=== PATIENT | female | born 1990 | race Caucasian/White ===

== ENCOUNTER 2024-05-19 19:13 | Observation (INO) | payer OTHER ==
--- NOTE | 2024-05-19 19:34 | ERPHSYRPT ---
- History of Present Illness Time Seen by Provider: 05/19/24 19:34 Source: patient, EMS Exam Limitations: no limitations Physician History: This is a 34-year-old white female patient that arrives by paramedics secondary to worsening symptoms of cough and shortness of breath. Patient was fine on 05/17/2024. However, on the morning of 05/18/2024, she began having coughing symptoms, sore throat body aches. She was seen at her primary care provider's office on 05/18/2024 and viral swabs and strep test were all performed and were negative. No other studies were performed. She was diagnosed with viral illness and sent home. This evening, prior to arrival she began having worsening cough and worsening shortness of breath. She was somewhat confused and was found to be hypoxic with a room air oxygen saturation of 83%. Paramedics arrived and provided her with oxygen supplementation as well as provided her with a DuoNeb treatment. Patient has a history of migraine headaches as well as asthma. She denies chest pain. She denies abdominal pain. She has no nausea vomiting or diarrhea symptoms. Per paramedics additional history and information, the patient was wheezing prior to providing her with a DuoNeb treatment. Timing/Duration: yesterday, worse Cough Quality/Degree: mild, dry cough Possible Cause: no prior episodes Modifying Factors: Improves With: coughing, other (DuoNeb nebulizer treatment helped with her cough and breathing) Associated Symptoms: cough, headache, shortness of breath, sore throat, No chest pain/soreness Allergies/Adverse Reactions: No Known Drug Allergies Allergy (Verified 05/19/24 19:40) Home Medications: Albuterol Sulfate [Albuterol Sulfate Hfa] 2 inh IH Q4H PRN PRN 05/19/24 [History] Dextroamphetamine/Amphetamine [Dextroamp-Amphetamin 20 mg Tab] 40 mg PO DAILY 05/19/24 [History] Hx Tetanus, Diphtheria Vaccination/Date Given: No Hx Influenza Vaccination/Date Given: No Hx Pneumococcal Vaccination/Date Given: No Travel Risk - International Travel Have you traveled outside of the country in past 3 weeks: No - Emerging Infectious Disease Are you exhibiting symptoms associated with any current EIDs: Yes - Review of Systems Constitutional: No Symptoms Eyes: No Symptoms Ears, Nose, & Throat: Throat Pain Respiratory: Cough, Dyspnea, Wheezing Cardiac: No Symptoms Abdominal/Gastrointestinal: No Symptoms Genitourinary Symptoms: No Symptoms Musculoskeletal: No Symptoms Skin: No Symptoms Neurological: Headache Psychological: No Symptoms Endocrine: No Symptoms Hematologic/Lymphatic: No Symptoms Immunological/Allergic: No Symptoms All Other Systems: Reviewed and Negative - Past Medical History Pertinent Past Medical History: Yes Neurological History: Migraines ENT History: No Pertinent History Cardiac History: No Pertinent History Respiratory History: Asthma Musculoskeletal History: No Pertinent History GI Medical History: No Pertinent History History: No Pertinent History Psycho-Social History: No Pertinent History Female Reproductive Disorders: No Pertinent History Other Medical History: HX OF MISCARRIAGE - Past Surgical History Past Surgical History: Yes Neuro Surgical History: No Pertinent History Cardiac: No Pertinent History Respiratory: No Pertinent History Gastrointestinal: No Pertinent History Genitourinary: No Pertinent History Musculoskeletal: No Pertinent History Female Surgical History: Section - Female History Hx Last Menstrual Period: 09/14/12 - Social History Smoking Status: Never smoker Exposure to second hand smoke: No Drug Use: none Patient Lives Alone: No - Nursing Vital Signs Nursing Vital Signs: Initial Vital Signs Temperature 97.8 F 05/19/24 19:14 Pulse Rate 134 H 05/19/24 19:14 Respiratory Rate 20 05/19/24 19:14 Blood Pressure 118/77 05/19/24 19:14 O2 Sat by Pulse Oximetry 95 05/19/24 19:14 Pain Scale Pain Intensity 8 - Physical Exam General Appearance: no apparent distress, alert, anxiety Eye Exam: PERRL/EOMI, eyes nml inspection Ears, Nose, Throat Exam: normal ENT inspection, moist mucous membranes Neck Exam: normal inspection, non-tender, supple, full range of motion Respiratory Exam: normal breath sounds, lungs clear, airway intact, No chest tenderness, No respiratory distress Cardiovascular Exam: tachycardia Gastrointestinal/Abdomen Exam: soft, normal bowel sounds, No tenderness Pelvic Exam: not done Rectal Exam: not done Back Exam: normal inspection, normal range of motion, No CVA tenderness, No vertebral tenderness Extremity Exam: normal inspection, normal range of motion, pelvis stable Neurologic Exam: alert, oriented x 3, cooperative, home care specialist II-XII nml as tested, sensation nml Skin Exam: normal color, warm, dry Lymphatic Exam: No adenopathy SpO2 Interpretation: normal O2 Delivery: Room Air - Course Nursing assessment & vital signs reviewed: Yes Ordered Tests: Active Orders 24 hr Category Date Time Status Cephalometric Technician STAT Care 05/19/24 19:38 Active IV Insertion STAT Care 05/19/24 19:35 Active Pulse Oximetry (ED) STAT Care 05/19/24 19:35 Active CHEST 1 VIEW (PORTABLE) Stat Exams 05/19/24 20:51 Taken BLOOD CULTURE Stat Lab 05/19/24 19:55 Received CBC W DIFF Stat Lab 05/19/24 19:42 Completed CMP Stat Lab 05/19/24 19:42 Completed CULTURE,URINE Stat Lab 05/19/24 21:30 Received D-DIMER QUANTITATIVE Stat Lab 05/19/24 19:55 Completed MONO SCREEN Stat Lab 05/19/24 19:42 Completed UA W/RFX UR CULTURE Stat Lab 05/19/24 21:30 Completed Transfer Order Routine Transfer 05/19/24 Ordered Medication Summary Discontinued Medications Generic Name Dose Route Start Last Admin Trade Name Freq PRN Reason Stop Dose Admin Hydrocodone Bitart/Acetaminophen 15 ml 05/19/24 19:39 05/19/24 19:50 Hydrocodone/Acetaminophen 5 Ml Udcup PO 05/19/24 19:40 15 ml STAT STA Administration Hydrocodone Bitart/Acetaminophen Confirm 05/19/24 19:44 Hydrocodone/Acetaminophen 5 Ml Udcup Administered 05/19/24 19:45 Dose 15 ml .ROUTE .STK-MED ONE Methylprednisolone Sodium 0 mg 05/19/24 19:39 05/19/24 19:52 Succinate 125 mg/ Sterile IV 05/19/24 19:40 125 mg Water 2 ml STAT ONE Administration Ceftriaxone Sodium 1 gm in 100 mls @ 200 mls/hr 05/19/24 21:26 05/19/24 21:42 Rocephin 1 Gm / 100 Ml Nacl IV 05/19/24 21:55 200 ml/hr STAT ONE 200 mls/hr Administration Sodium Chloride 1,000 mls @ 999 mls/hr 05/19/24 21:28 05/19/24 21:42 Sodium Chloride 0.9% 1000 Ml IV 05/19/24 22:28 999 mls/hr .Q1H1M STA Administration Sodium Chloride Confirm 05/19/24 21:37 Sodium Chloride 0.9% 1000 Ml Administered 05/19/24 21:38 Dose 1,000 mls @ ud .ROUTE .STK-MED ONE Ceftriaxone Sodium Confirm 05/19/24 21:38 Rocephin 1 Gm / 100 Ml Nacl Administered 05/19/24 21:39 Dose 1 gm in 100 mls @ ud IV .STK-MED ONE Methylprednisolone Sodium Succinate Confirm 05/19/24 19:45 Methylprednis Sod Succ 125 Mg/2 Ml Vial Administered 05/19/24 19:46 Dose 125 mg .ROUTE .STK-MED ONE Potassium Chloride 20 meq 05/19/24 21:09 05/19/24 21:13 Potassium Chloride Tab 10 Meq Tab PO 05/19/24 21:10 20 meq STAT ONE Administration Potassium Chloride Confirm 05/19/24 21:11 Potassium Chloride Tab 10 Meq Tab Administered 05/19/24 21:12 Dose 20 meq .ROUTE .STK-MED ONE Sterile Water Confirm 05/19/24 19:44 Water For Injection,Sterile 10 Ml Vial Administered 05/19/24 19:45 Dose 10 ml IJ .STK-MED ONE Lab/Rad Data: Laboratory Result Diagrams 05/19/24 19:42 05/19/24 19:42 Laboratory Results 05/19/24 05/19/24 05/19/24 Range/Units 22:07 21:30 19:55 WBC (3.98-10.04) x10^3/uL RBC (3.93-5.22) x10^6/uL Hgb (11.2-15.7) g/dL Hct (34.1-44.9) % MCV (79.4-94.8) fL MCH (25.6-32.2) pg MCHC (32.2-35.5) g/dL RDW (11.7-14.4) % Plt Count (182-369) x10^3/uL MPV (9.4-12.3) fL Gran % (34.0-71.1) % Immature Gran % (Auto) (0.001-0.429) % Nucleat RBC Rel Count (0.00-0.2) % Eos # (Auto) (0.04-0.36) x10^3/uL Immature Gran # (Auto) (0.001-0.031) x10^3u/L Absolute Lymphs (auto) (1.18-3.74) x10^3/uL Absolute Monos (auto) (0.24-0.86) x10^3/uL Absolute Nucleated RBC (0.00-0.012) x10^3u/L Lymphocytes % (19.3-51.7) % Monocytes % (4.7-12.5) % Eosinophils % (0.7-5.8) % Basophils % (0.1-1.2) % Absolute Granulocytes (1.56-6.13) x10^3/uL Basophils # (0.01-0.08) x10^3/uL D-Dimer 0.39 (0.0-0.50) mg/L Sodium (135-145) mmol/L Potassium (3.5-5.1) mmol/L Chloride (98-107) mmol/L Carbon Dioxide (22-30) mmol/L Anion Gap (5-15) MEQ/L BUN (7-17) mg/dL Creatinine (0.52-1.04) mg/dL Estimated GFR ML/MIN Glucose (74-106) mg/dL Calcium (8.4-10.2) mg/dL Total Bilirubin (0.2-1.3) mg/dL AST (14-36) U/L ALT (0-35) U/L Alkaline Phosphatase (38-126) U/L Serum Total Protein (6.3-8.2) g/dL Albumin (3.5-5.0) g/dL Urine Color Dark Yellow A (Yellow) Urine Appearance Cloudy A (Clear) Urine pH 5.0 (4.6-8.0) Ur Specific [place] >=1.030 A (1.005-1.030) Urine Protein 30 (Negative) Urine Glucose (UA) Negative (Negative) mg/dL Urine Ketones Trace A (Negative) Urine Blood Negative (Negative) Urine Nitrite Negative (Negative) Urine Bilirubin Negative (Negative) Urine Urobilinogen 1.0 A (0.2) mg/dL Ur Leukocyte Esterase Moderate A (Negative) U Hyaline Cast (Auto) 6-10 A (0-2) /LPF Urine Microscopic RBC 0-2 (0-5) /HPF Urine Microscopic WBC >100 A (0-5) /HPF Ur Epithelial Cells Moderate A (None Seen) /HPF Urine Bacteria Many A (None Seen) /HPF Urine Culture Reflexed YES (NO) Monoscreen (NEGATIVE) Influenza Type A Ag NEGATIVE (NEGATIVE) Influenza Type B Ag NEGATIVE (NEGATIVE) RSV (PCR) NEGATIVE (NEGATIVE) SARS-CoV-2 (PCR) NEGATIVE (NEGATIVE) 05/19/24 05/19/24 05/19/24 Range/Units 19:42 19:42 19:42 WBC 11.0 H (3.98-10.04) x10^3/uL RBC 4.71 (3.93-5.22) x10^6/uL Hgb 14.7 (11.2-15.7) g/dL Hct 44.2 (34.1-44.9) % MCV 93.8 (79.4-94.8) fL MCH 31.2 (25.6-32.2) pg MCHC 33.3 (32.2-35.5) g/dL RDW 12.2 (11.7-14.4) % Plt Count 388 H (182-369) x10^3/uL MPV 9.5 (9.4-12.3) fL Gran % 78.2 H (34.0-71.1) % Immature Gran % (Auto) 0.3 (0.001-0.429) % Nucleat RBC Rel Count 0.0 (0.00-0.2) % Eos # (Auto) 0.64 H (0.04-0.36) x10^3/uL Immature Gran # (Auto) 0.03 (0.001-0.031) x10^3u/L Absolute Lymphs (auto) 1.07 L (1.18-3.74) x10^3/uL Absolute Monos (auto) 0.56 (0.24-0.86) x10^3/uL Absolute Nucleated RBC 0.00 (0.00-0.012) x10^3u/L Lymphocytes % 9.8 L (19.3-51.7) % Monocytes % 5.1 (4.7-12.5) % Eosinophils % 5.8 (0.7-5.8) % Basophils % 0.8 (0.1-1.2) % Absolute Granulocytes 8.57 H (1.56-6.13) x10^3/uL Basophils # 0.09 H (0.01-0.08) x10^3/uL D-Dimer (0.0-0.50) mg/L Sodium 136 (135-145) mmol/L Potassium 3.3 L (3.5-5.1) mmol/L Chloride 104 (98-107) mmol/L Carbon Dioxide 20 L (22-30) mmol/L Anion Gap 14.3 (5-15) MEQ/L BUN 11 (7-17) mg/dL Creatinine 0.73 (0.52-1.04) mg/dL Estimated GFR 109.9 ML/MIN Glucose 128 H (74-106) mg/dL Calcium 9.1 (8.4-10.2) mg/dL Total Bilirubin 0.40 (0.2-1.3) mg/dL AST 35 (14-36) U/L ALT 38 H (0-35) U/L Alkaline Phosphatase 82 (38-126) U/L Serum Total Protein 7.2 (6.3-8.2) g/dL Albumin 4.3 (3.5-5.0) g/dL Urine Color (Yellow) Urine Appearance (Clear) Urine pH (4.6-8.0) Ur Specific [place] (1.005-1.030) Urine Protein (Negative) Urine Glucose (UA) (Negative) mg/dL Urine Ketones (Negative) Urine Blood (Negative) Urine Nitrite (Negative) Urine Bilirubin (Negative) Urine Urobilinogen (0.2) mg/dL Ur Leukocyte Esterase (Negative) U Hyaline Cast (Auto) (0-2) /LPF Urine Microscopic RBC (0-5) /HPF Urine Microscopic WBC (0-5) /HPF Ur Epithelial Cells (None Seen) /HPF Urine Bacteria (None Seen) /HPF Urine Culture Reflexed (NO) Monoscreen POSITIVE A (NEGATIVE) Influenza Type A Ag (NEGATIVE) Influenza Type B Ag (NEGATIVE) RSV (PCR) (NEGATIVE) SARS-CoV-2 (PCR) (NEGATIVE) - Progress Progress: improved, re-examined Air Movement: good Progress Note: 05/19/24 20:12 My medical decision making and the assignment of moderate complexity to this patient's medical issue today is based on review of the patient's past medical history, review the patient's medication list, history present illness and physical findings on examination. The workup in this patient includes provide the patient with intravenous Solu-Medrol, oral hydrocodone elixir, CBC, CMP, D- dimer level, urinalysis. I will not repeat the viral swabs nor the group A strep test as they were negative less than 24 hours ago. I will also test for mononucleosis. Depending on the results of the D-dimer, we will either perform a CT scan of the chest with contrast or chest x-ray. Differential diagnosis includes but is not limited to pneumonia, viral illness, upper respiratory infection 05/19/24 21:38 I interpreted the patient's laboratory data results. Based on the laboratory data results, the patient has a leukocytosis with a left shift. The patient also has mild hypokalemia with a potassium level 3.3. We supplemented her with 20 mill equivalents of potassium orally. In addition, her urinalysis so she has a urinary tract infection I interpreted the preliminary chest x-ray report. Based on my read this evening, I do not see an acute cardiopulmonary process. Specifically, I do not appreciate an infiltrate. I spoke with Dr. Devine, our telehospitalist on-call this evening. I reviewed the patient history, presenting complaint, physical findings on examination and the results of our workup. We will place this patient in observation and provide the patient with intravenous antibiotics, steroids, respiratory therapy management and nebulizer treatments. 05/19/24 21:44 I was asked by nursing staff to repeat the COVID swabs just in case there is a change to positive test. If it is positive we will isolate this patient. 05/19/24 22:03 Blood Culture(s) Obtained: Yes Antibiotics given: Yes Counseled pt/family regarding: lab results, diagnosis, need for follow-up, rad results Medical Desision Making - Independent Historian Additional History obtained from: Supervisor [employer]/EMT - External Record(s) Reviewed Records reviewed as a part of evaluation & management: EMS - Discussion of managment Care discussed with:: hospitalist Reviewed:: Test results, Need for additional workup Agreed on:: place in obs - Diagnostic Testing Diagnostic test were ordered, analyzed, and reviewed by me: Yes Radiological Interpretation: Interpreted by me, Teleradiologist Report - Risk of complications The pt has a high risk of morbidity or mortality based on: Decision regarding hospitilization or escalation of hosp level of care - Departure Departure Disposition: Observation Clinical Impression: Mononucleosis, Hypoxia, Shortness of breath, Upper respiratory infection UTI (urinary tract infection) Qualifiers: Urinary tract infection type: acute cystitis Hematuria presence: without hematuria Qualified Code(s): N30.00 - Acute cystitis without hematuria Condition: Stable Critical Care Time: No Referrals: MIRA COULTER [COURTESY STAFF] - Follow up/PCP as directed
[2024-05-19] MEDS ORDERED: HYDROCODONE-ACETAMIN 2.5-108/5 ML SOLUTION ONE (19:44)
[2024-05-19] MEDS ORDERED: Sterile H2O 10 ml IJ ONE (19:44)
[2024-05-19] MEDS ORDERED: solu-MEDROL ONE (19:45)
[2024-05-19 19:46] LABS: Absolute Neutrophil Ct (ANC) 8.57 x10^3/uL (1.56-6.13); BASOPHIL % 0.8 % (0.1-1.2); Basophil (Absolute #) 0.09 x10^3/uL (0.01-0.08); Eosinophil % 5.8 % (0.7-5.8); Eosinophil (Absolute #) 0.64 x10^3/uL (0.04-0.36); Hematocrit 44.2 % (34.1-44.9); Hemoglobin 14.7 g/dL (11.2-15.7); IMMATURE GRAN # 0.03 x10^3u/L (0.001-0.031); IMMATURE GRAN % 0.3 % (0.001-0.429); Lymphocyte (Absolute #) 1.07 x10^3/uL (1.18-3.74); Lymphocytes % 9.8 % (19.3-51.7); Mean Cell Volume 93.8 fL (79.4-94.8); Mean Corpuscular Hemoglobin 31.2 pg (25.6-32.2); Mean Corpuscular Hgb Concent. 33.3 g/dL (32.2-35.5); Mean Platelet Volume 9.5 fL (9.4-12.3); Monocyte (Absolute #) 0.56 x10^3/uL (0.24-0.86); Monocytes % 5.1 % (4.7-12.5); Neutrophil % 78.2 % (34.0-71.1); Platelet Count 388 x10^3/uL (182-369); Red Blood Count 4.71 x10^6/uL (3.93-5.22); Red Cell Distribution Width 12.2 % (11.7-14.4)
[2024-05-19] MEDS: HYDROCODONE-ACETAMIN 2.5-108/5 ML SOLUTION PO STA (19:50)
[2024-05-19] MEDS: solu-MEDROL 125 MG, Sterile H2O 10 ml 2 ML IV ONE (19:52)
[2024-05-19 19:53] LABS: ALBUMIN 4.3 g/dL (3.5-5.0); ANION GAP 14.3 MEQ/L (5-15); BILIRUBIN,TOTAL 0.4 mg/dL (0.2-1.3); Calcium 9.1 mg/dL (8.4-10.2); Creatinine 1 0.73 mg/dL (0.52-1.04); EST GLOMERULAR FILTRATION RATE 109.9 ML/MIN; Potassium 3.3 mmol/L (3.5-5.1); Total Protein 7.2 g/dL (6.3-8.2)
[2024-05-19] MEDS ORDERED: Klor Con ONE (21:11)
[2024-05-19] MEDS: Klor Con PO ONE (21:13)
[2024-05-19] MEDS ORDERED: Sodium Chloride 0.9% 1000 ML 1,000 ML ONE (21:37)
[2024-05-19] MEDS ORDERED: ROCEPHIN 1 GM / 100 ML NaCl 1 GM/100 ML IVPB IV ONE (21:38)
[2024-05-19] MEDS: ROCEPHIN 1 GM / 100 ML NaCl 1 GM/100 ML IVPB IV ONE (21:42)
[2024-05-19] MEDS: Sodium Chloride 0.9% 1000 ML 1,000 ML IV STA (21:42)
[2024-05-19 21:50] LABS: Appearance Cloudy (Clear); Bacteria Many /HPF (None Seen); Bilirubin Negative (Negative); Blood Negative (Negative); Epithelial Cells Moderate /HPF (None Seen); Glucose, Urine Negative (Negative); Ketones Trace (Negative); Leukocyte Esterase Moderate (Negative); Nitrite Negative (Negative); Protein,Urine Dip 30 (Negative); RBC 0-2 /HPF (0-5); Specific Gravity >=1.030 (1.005-1.030); WBC >100 /HPF (0-5)
--- NOTE | 2024-05-19 22:20 | PCM.HP ---
History of Present Illness - Chief Complaint Chief Complaint: sob Date: 05/19/24 History of Present Illness: Ms. MEJIA is a 34 year old female with a past medical history significant for asthma and migraines who recently went to her PCP with complaints of shortness of breath. She underwent tests for flu and strep, which came back negative, and was sent home, but returns with increasing shortness of breath associated with hypoxia as O2 sat was 83% with some confusion. She received duonebs and steroids with some improvement, but attempts to ambulate led to further O2 drop. No fever/chills. No chest pain or palpitations. No nausea, vomiting or diarrhea. No dysuria, hematuria or urgency. Initial labs were notable for a elevated WBC count of 11.0k and she was positive for mono. - Review of Systems Constitutional: No Fever, No Chills Eyes: No Vision Changes Ears, Nose, & Throat: No Sinus Drainage, No Epistaxis Respiratory: Short Of Breath, No Cough, No Orthopnea Cardiac: No Chest Pain, No Edema, No Palpitations Abdominal/Gastrointestinal: No Abdominal Pain, No Nausea, No Vomiting, No Diarrhea Genitourinary Symptoms: No Dysuria, No Frequency, No Hematuria Musculoskeletal: No Arthralgias Skin: No Cellulitis, No Rash Neurological: No Dizziness, No Focal Weakness Psychological: No Suicidal Ideations Endocrine: No Polyuria, No Polydipsia Hematologic/Lymphatic: No Blood Clots Medications & Allergies Home Medications: Home Medication List Albuterol Sulfate [Albuterol Sulfate Hfa] 2 inh IH Q4H PRN PRN 05/19/24 [History Confirmed 05/19/24] Dextroamphetamine/Amphetamine [Dextroamp-Amphetamin 20 mg Tab] 40 mg PO DAILY 05/19/24 [History Confirmed 05/19/24] Allergies/Adverse Reactions: Allergies Allergy/AdvReac Type Severity Reaction Status Date / Time No Known Drug Allergies Allergy Verified 05/19/24 19:40 - Past Medical History Past Medical History: Yes Neurological History: Migraines ENT History: No Pertinent History Cardiac History: No Pertinent History Respiratory History: Asthma Musculoskelatal History: No Pertinent History GI Medical History: No Pertinent History History: No Pertinent History Pyscho-Social History: No Pertinent History Reproductive Disorders: No Pertinent History Comment: HX OF MISCARRIAGE - Female History Hx Last Menstrual Period: 3/29/13 - Past Surgical History Past Surgical History: Yes Neuro Surgical History: No Pertinent History Cardiac History: No Pertinent History Respiratory Surgery: No Pertinent History GI Surgical History: No Pertinent History Genitourinary Surgical Hx: No Pertinent History Musculskeletal Surgical Hx: No Pertinent History Female Surgical History: Section Other Surgical History: c section x3. wisdom teeth - Social History Smoking Status: Never smoker Exposure to second hand smoke: No Alcohol: None Drug Use: none - Social Determinants of Health Will the patient participate in the screening: Declined to provide - Physical Exam Vital Signs: Vital Signs - 24 hr Temp Pulse Resp BP BP Pulse Ox 05/19/24 22:00 109 H 26 H 106/86 97 05/19/24 21:30 99.1 F 115 H 23 124/76 96 05/19/24 21:00 119 H 19 113/72 95 05/19/24 20:30 105 H 19 113/80 95 05/19/24 20:00 109 H 20 119/80 96 05/19/24 19:47 99 05/19/24 19:42 98 05/19/24 19:30 135 H 17 104/78 99 05/19/24 19:16 118/77 99 05/19/24 19:14 97.8 F 134 H 22 118/77 96 General Appearance: mild distress Neurologic Exam: alert Ears, Nose, Throat Exam: dry mucous membranes Neck Exam: supple Respiratory Exam: No respiratory distress Cardiovascular Exam: regular rate/rhythm Gastrointestinal/Abdomen Exam: soft Extremity Exam: No pedal edema, No swelling Skin Exam: normal color, No rash Results - Labs Lab/Micro Results: Lab Results-Last 24 Hours 05/19/24 05/19/24 05/19/24 Range/Units 19:42 19:42 19:42 WBC 11.0 H (3.98-10.04) x10^3/uL RBC 4.71 (3.93-5.22) x10^6/uL Hgb 14.7 (11.2-15.7) g/dL Hct 44.2 (34.1-44.9) % MCV 93.8 (79.4-94.8) fL MCH 31.2 (25.6-32.2) pg MCHC 33.3 (32.2-35.5) g/dL RDW 12.2 (11.7-14.4) % Plt Count 388 H (182-369) x10^3/uL MPV 9.5 (9.4-12.3) fL Gran % 78.2 H (34.0-71.1) % Immature Gran % (Auto) 0.3 (0.001-0.429) % Nucleat RBC Rel Count 0.0 (0.00-0.2) % Eos # (Auto) 0.64 H (0.04-0.36) x10^3/uL Immature Gran # (Auto) 0.03 (0.001-0.031) x10^3u/L Absolute Lymphs (auto) 1.07 L (1.18-3.74) x10^3/uL Absolute Monos (auto) 0.56 (0.24-0.86) x10^3/uL Absolute Nucleated RBC 0.00 (0.00-0.012) x10^3u/L Lymphocytes % 9.8 L (19.3-51.7) % Monocytes % 5.1 (4.7-12.5) % Eosinophils % 5.8 (0.7-5.8) % Basophils % 0.8 (0.1-1.2) % Absolute Granulocytes 8.57 H (1.56-6.13) x10^3/uL Basophils # 0.09 H (0.01-0.08) x10^3/uL D-Dimer (0.0-0.50) mg/L Sodium 136 (135-145) mmol/L Potassium 3.3 L (3.5-5.1) mmol/L Chloride 104 (98-107) mmol/L Carbon Dioxide 20 L (22-30) mmol/L Anion Gap 14.3 (5-15) MEQ/L BUN 11 (7-17) mg/dL Creatinine 0.73 (0.52-1.04) mg/dL Estimated GFR 109.9 ML/MIN Glucose 128 H (74-106) mg/dL Calcium 9.1 (8.4-10.2) mg/dL Total Bilirubin 0.40 (0.2-1.3) mg/dL AST 35 (14-36) U/L ALT 38 H (0-35) U/L Alkaline Phosphatase 82 (38-126) U/L Serum Total Protein 7.2 (6.3-8.2) g/dL Albumin 4.3 (3.5-5.0) g/dL Urine Color (Yellow) Urine Appearance (Clear) Urine pH (4.6-8.0) Ur Specific [place] (1.005-1.030) Urine Protein (Negative) Urine Glucose (UA) (Negative) mg/dL Urine Ketones (Negative) Urine Blood (Negative) Urine Nitrite (Negative) Urine Bilirubin (Negative) Urine Urobilinogen (0.2) mg/dL Ur Leukocyte Esterase (Negative) U Hyaline Cast (Auto) (0-2) /LPF Urine Microscopic RBC (0-5) /HPF Urine Microscopic WBC (0-5) /HPF Ur Epithelial Cells (None Seen) /HPF Urine Bacteria (None Seen) /HPF Urine Culture Reflexed (NO) Monoscreen POSITIVE A (NEGATIVE) 05/19/24 05/19/24 Range/Units 19:55 21:30 WBC (3.98-10.04) x10^3/uL RBC (3.93-5.22) x10^6/uL Hgb (11.2-15.7) g/dL Hct (34.1-44.9) % MCV (79.4-94.8) fL MCH (25.6-32.2) pg MCHC (32.2-35.5) g/dL RDW (11.7-14.4) % Plt Count (182-369) x10^3/uL MPV (9.4-12.3) fL Gran % (34.0-71.1) % Immature Gran % (Auto) (0.001-0.429) % Nucleat RBC Rel Count (0.00-0.2) % Eos # (Auto) (0.04-0.36) x10^3/uL Immature Gran # (Auto) (0.001-0.031) x10^3u/L Absolute Lymphs (auto) (1.18-3.74) x10^3/uL Absolute Monos (auto) (0.24-0.86) x10^3/uL Absolute Nucleated RBC (0.00-0.012) x10^3u/L Lymphocytes % (19.3-51.7) % Monocytes % (4.7-12.5) % Eosinophils % (0.7-5.8) % Basophils % (0.1-1.2) % Absolute Granulocytes (1.56-6.13) x10^3/uL Basophils # (0.01-0.08) x10^3/uL D-Dimer 0.39 (0.0-0.50) mg/L Sodium (135-145) mmol/L Potassium (3.5-5.1) mmol/L Chloride (98-107) mmol/L Carbon Dioxide (22-30) mmol/L Anion Gap (5-15) MEQ/L BUN (7-17) mg/dL Creatinine (0.52-1.04) mg/dL Estimated GFR ML/MIN Glucose (74-106) mg/dL Calcium (8.4-10.2) mg/dL Total Bilirubin (0.2-1.3) mg/dL AST (14-36) U/L ALT (0-35) U/L Alkaline Phosphatase (38-126) U/L Serum Total Protein (6.3-8.2) g/dL Albumin (3.5-5.0) g/dL Urine Color Dark Yellow A (Yellow) Urine Appearance Cloudy A (Clear) Urine pH 5.0 (4.6-8.0) Ur Specific [place] >=1.030 A (1.005-1.030) Urine Protein 30 (Negative) Urine Glucose (UA) Negative (Negative) mg/dL Urine Ketones Trace A (Negative) Urine Blood Negative (Negative) Urine Nitrite Negative (Negative) Urine Bilirubin Negative (Negative) Urine Urobilinogen 1.0 A (0.2) mg/dL Ur Leukocyte Esterase Moderate A (Negative) U Hyaline Cast (Auto) 6-10 A (0-2) /LPF Urine Microscopic RBC 0-2 (0-5) /HPF Urine Microscopic WBC >100 A (0-5) /HPF Ur Epithelial Cells Moderate A (None Seen) /HPF Urine Bacteria Many A (None Seen) /HPF Urine Culture Reflexed YES (NO) Monoscreen (NEGATIVE) - Radiology Impressions Radiology Exams & Impressions: Radiology Procedures Category Date Time Status CHEST 1 VIEW (PORTABLE) Stat Exams 05/19/24 20:51 Taken Assessment/Plan (1) Hypoxia Current Visit: Yes Status: Acute Assessment & Plan: Likely from bronchitis, asthma exacerbation 1. Admit to hospital 2. Duonebs, Solumedrol 3. Supplemental O2, monitor sats 4. Empiric antibiotics, check sputum culture 5. DVT/GI prophylaxis Code(s): R09.02 - HYPOXEMIA (2) Mononucleosis Current Visit: Yes Status: Acute Assessment & Plan: Positive monospot 1. Supportive care 2. Encourage PO intake, defer IVFs for now Code(s): B27.90 - INFECTIOUS MONONUCLEOSIS, UNSPECIFIED WITHOUT COMPLICATION (3) Hypokalemia Current Visit: Yes Status: Acute Assessment & Plan: Likely from GI losses 1. Replete K 2. Check Mg 3. Monitor electrolytes Code(s): E87.6 - HYPOKALEMIA (4) UTI (urinary tract infection) Current Visit: Yes Status: Acute Qualifiers: Urinary tract infection type: acute cystitis Hematuria presence: without hematuria Qualified Code(s): N30.00 - Acute cystitis without hematuria Assessment & Plan: U/A with ketones, and bacteria associated with elevated WBC 1. Encourage PO intake 2. Empiric antibiotics 3. Follow up urine cultures Code(s): N39.0 - URINARY TRACT INFECTION, SITE NOT SPECIFIED Telemedicine Encounter - Telemedicine Encounter Telemedicine Encounter: "The entirety of this encounter was performed via Telemedicine" This visit was performed using real-time audio and video connection between my location and thepatients locationwith the assistance of a surrogateat the patients location. Written or verbal consent was obtained from the patient/guardian to perform this visit using[employer] technology. Any patient questions regarding the telemedicine interaction were answered.
[2024-05-19 22:49] LABS: INFLUENZA A NEGATIVE (NEGATIVE); INFLUENZA B NEGATIVE (NEGATIVE); RESPIRATORY SYNCTIAL VIRUS NEGATIVE (NEGATIVE); SARS-CoV-2 Xpert Express NEGATIVE (NEGATIVE)
[2024-05-20] MEDS ORDERED: DUONEB 0.5-3 MG/3 ml Neb IH ONE (00:02)
[2024-05-20] MEDS: DUONEB 0.5-3 MG/3 ml Neb IH SCH (00:23)
[2024-05-20] MEDS: solu-MEDROL 80 MG, Sterile H2O 10 ml 2 ML IV SCH (00:23)
[2024-05-20] MEDS: Sodium Chloride 0.9% 1000 ML 1,000 ML IV SCH (00:29)
[2024-05-20] MEDS: HYDROCODONE-ACETAMIN 2.5-108/5 ML SOLUTION PO PRN (00:30)
[2024-05-20 04:35] LABS: Absolute Neutrophil Ct (ANC) 4.99 x10^3/uL (1.56-6.13); BASOPHIL % 0.2 % (0.1-1.2); Basophil (Absolute #) 0.01 x10^3/uL (0.01-0.08); Eosinophil % 1.7 % (0.7-5.8); Eosinophil (Absolute #) 0.09 x10^3/uL (0.04-0.36); Hematocrit 40.4 % (34.1-44.9); Hemoglobin 13.5 g/dL (11.2-15.7); IMMATURE GRAN # 0.02 x10^3u/L (0.001-0.031); IMMATURE GRAN % 0.4 % (0.001-0.429); Lymphocyte (Absolute #) 0.26 x10^3/uL (1.18-3.74); Lymphocytes % 4.8 % (19.3-51.7); Mean Corpuscular Hemoglobin 31.4 pg (25.6-32.2); Mean Corpuscular Hgb Concent. 33.4 g/dL (32.2-35.5); Mean Platelet Volume 9.6 fL (9.4-12.3); Monocyte (Absolute #) 0.04 x10^3/uL (0.24-0.86); Monocytes % 0.7 % (4.7-12.5); Neutrophil % 92.2 % (34.0-71.1); Platelet Count 335 x10^3/uL (182-369); Red Cell Distribution Width 12.3 % (11.7-14.4); White Blood Count 5.4 x10^3/uL (3.98-10.04)
[2024-05-20 05:05] LABS: ALBUMIN 3.7 g/dL (3.5-5.0); ANION GAP 13.5 MEQ/L (5-15); BILIRUBIN,TOTAL 0.2 mg/dL (0.2-1.3); Creatinine 1 0.64 mg/dL (0.52-1.04); EST GLOMERULAR FILTRATION RATE 118.1 ML/MIN; MAGNESIUM 1.8 mg/dL (1.6-2.3); Potassium 4.2 mmol/L (3.5-5.1); Total Protein 6.6 g/dL (6.3-8.2)
[2024-05-20] MEDS ORDERED: solu-MEDROL ONE (06:18)
[2024-05-20] MEDS ORDERED: Sterile H2O 10 ml IJ ONE (06:18)
[2024-05-20] MEDS ORDERED: MEDICATION INTERVENTION MC SCH (07:15)
--- NOTE | 2024-05-20 07:19 | XRAY ---
Indication: Cough. Short of breath. Comparison: March 27, 2008 Portable chest again demonstrates normal heart, lungs, and bony thorax.
--- NOTE | 2024-05-20 08:10 | PCM.NOTE ---
Date and Time: 05/20/24802 Subjective Assessment: Ms. MEJIA is a 34 year old female with a past medical history significant for asthma and migraines who recently went to her PCP with complaints of shortness of breath. She underwent tests for flu and strep, which came back negative, and was sent home, but returns with increasing shortness of breath associated with hypoxia as O2 sat was 83% with some confusion. She received duonebs and steroids with some improvement, but attempts to ambulate led to further O2 drop. No fever/chills. No chest pain or palpitations. No nausea, vomiting or diarrhea. No dysuria, hematuria or urgency. Initial labs were notable for a elevated WBC count of 11.0k and she was positive for mono. Today she continues to have SOB a nd on 2lNC at 96% with wheezing throughout. CO2 17 and oral bicarb started. Will continue antibiotics, duonebs, and steroids for asthma/ bronchitis. Cultures pending. She denies CP, Abd. pain, N/V/D. - Review of Systems Constitutional: No Fever, No Chills Eyes: No Symptoms Ears, Nose, & Throat: No Symptoms Respiratory: Cough, Short Of Breath, Wheezing Cardiac: No Chest Pain, No Edema, No Syncope Abdominal/Gastrointestinal: No Abdominal Pain, No Nausea, No Vomiting, No Diarrhea Genitourinary Symptoms: No Dysuria Musculoskeletal: No Back Pain, No Neck Pain Skin: No Rash Neurological: No Dizziness, No Focal Weakness, No Sensory Changes Psychological: No Symptoms Endocrine: No Symptoms Hematologic/Lymphatic: No Symptoms Immunological/Allergic: No Symptoms Objective Exam General Appearance: no apparent distress, alert Neurologic Exam: alert, oriented x 3, cooperative, normal mood/affect, nml cerebellar function, sensation nml, No motor deficits Skin Exam: normal color, warm, dry Eye Exam: PERRL, EOMI, eyes nml inspection Ears, Nose, Throat Exam: normal ENT inspection, pharynx normal, moist mucous membranes Neck Exam: normal inspection, non-tender, supple, full range of motion Respiratory Exam: wheezing, No respiratory distress Cardiovascular Exam: regular rate/rhythm, normal heart sounds Gastrointestinal/Abdomen Exam: soft, No tenderness, No mass Extremity Exam: normal inspection, normal range of motion Back Exam: normal inspection, normal range of motion, No CVA tenderness, No vertebral tenderness Pelvic Exam: deferred Rectal Exam: deferred Objective Data Vital Signs: Vital Signs - 24 hr Temp Pulse Resp BP BP Pulse Ox 05/20/24 07:03 97.7 F 93 H 16 107/58 96 05/20/24 05:50 98 H 18 97 05/20/24 04:00 97.3 F 94 H 18 104/55 95 05/20/24 00:24 109 H 16 96 05/19/24 23:56 97.1 F 109 H 20 110/69 96 05/19/24 22:00 109 H 26 H 106/86 97 05/19/24 21:30 99.1 F 115 H 23 124/76 96 05/19/24 21:00 119 H 19 113/72 95 05/19/24 20:30 105 H 19 113/80 95 05/19/24 20:00 109 H 20 119/80 96 05/19/24 19:47 99 05/19/24 19:42 98 05/19/24 19:30 135 H 17 104/78 99 05/19/24 19:16 118/77 99 05/19/24 19:14 97.8 F 134 H 22 118/77 96 Pain Assessment - Last Documented Pain Intensity 0 Pain Scale Used 0-10 Pain Scale Intake and Output: Intake & Output 05/17/24 05/18/24 05/19/24 05/20/24 11:59 11:59 11:59 11:59 Weight 67.7 kg Lab Results: Lab Results-Last 24 Hours 05/19/24 05/19/24 05/19/24 Range/Units 19:42 19:42 19:42 WBC 11.0 H (3.98-10.04) x10^3/uL RBC 4.71 (3.93-5.22) x10^6/uL Hgb 14.7 (11.2-15.7) g/dL Hct 44.2 (34.1-44.9) % MCV 93.8 (79.4-94.8) fL MCH 31.2 (25.6-32.2) pg MCHC 33.3 (32.2-35.5) g/dL RDW 12.2 (11.7-14.4) % Plt Count 388 H (182-369) x10^3/uL MPV 9.5 (9.4-12.3) fL Gran % 78.2 H (34.0-71.1) % Immature Gran % (Auto) 0.3 (0.001-0.429) % Nucleat RBC Rel Count 0.0 (0.00-0.2) % Eos # (Auto) 0.64 H (0.04-0.36) x10^3/uL Immature Gran # (Auto) 0.03 (0.001-0.031) x10^3u/L Absolute Lymphs (auto) 1.07 L (1.18-3.74) x10^3/uL Absolute Monos (auto) 0.56 (0.24-0.86) x10^3/uL Absolute Nucleated RBC 0.00 (0.00-0.012) x10^3u/L Lymphocytes % 9.8 L (19.3-51.7) % Monocytes % 5.1 (4.7-12.5) % Eosinophils % 5.8 (0.7-5.8) % Basophils % 0.8 (0.1-1.2) % Absolute Granulocytes 8.57 H (1.56-6.13) x10^3/uL Basophils # 0.09 H (0.01-0.08) x10^3/uL D-Dimer (0.0-0.50) mg/L Sodium 136 (135-145) mmol/L Potassium 3.3 L (3.5-5.1) mmol/L Chloride 104 (98-107) mmol/L Carbon Dioxide 20 L (22-30) mmol/L Anion Gap 14.3 (5-15) MEQ/L BUN 11 (7-17) mg/dL Creatinine 0.73 (0.52-1.04) mg/dL Estimated GFR 109.9 ML/MIN Glucose 128 H (74-106) mg/dL Calcium 9.1 (8.4-10.2) mg/dL Magnesium (1.6-2.3) mg/dL Total Bilirubin 0.40 (0.2-1.3) mg/dL AST 35 (14-36) U/L ALT 38 H (0-35) U/L Alkaline Phosphatase 82 (38-126) U/L NT-Pro-B Natriuret Pep (<300) pg/mL Serum Total Protein 7.2 (6.3-8.2) g/dL Albumin 4.3 (3.5-5.0) g/dL Urine Color (Yellow) Urine Appearance (Clear) Urine pH (4.6-8.0) Ur Specific [place] (1.005-1.030) Urine Protein (Negative) Urine Glucose (UA) (Negative) mg/dL Urine Ketones (Negative) Urine Blood (Negative) Urine Nitrite (Negative) Urine Bilirubin (Negative) Urine Urobilinogen (0.2) mg/dL Ur Leukocyte Esterase (Negative) U Hyaline Cast (Auto) (0-2) /LPF Urine Microscopic RBC (0-5) /HPF Urine Microscopic WBC (0-5) /HPF Ur Epithelial Cells (None Seen) /HPF Urine Bacteria (None Seen) /HPF Urine Culture Reflexed (NO) Monoscreen POSITIVE A (NEGATIVE) Influenza Type A Ag (NEGATIVE) Influenza Type B Ag (NEGATIVE) RSV (PCR) (NEGATIVE) SARS-CoV-2 (PCR) (NEGATIVE) 05/19/24 05/19/24 05/19/24 Range/Units 19:55 21:30 22:07 WBC (3.98-10.04) x10^3/uL RBC (3.93-5.22) x10^6/uL Hgb (11.2-15.7) g/dL Hct (34.1-44.9) % MCV (79.4-94.8) fL MCH (25.6-32.2) pg MCHC (32.2-35.5) g/dL RDW (11.7-14.4) % Plt Count (182-369) x10^3/uL MPV (9.4-12.3) fL Gran % (34.0-71.1) % Immature Gran % (Auto) (0.001-0.429) % Nucleat RBC Rel Count (0.00-0.2) % Eos # (Auto) (0.04-0.36) x10^3/uL Immature Gran # (Auto) (0.001-0.031) x10^3u/L Absolute Lymphs (auto) (1.18-3.74) x10^3/uL Absolute Monos (auto) (0.24-0.86) x10^3/uL Absolute Nucleated RBC (0.00-0.012) x10^3u/L Lymphocytes % (19.3-51.7) % Monocytes % (4.7-12.5) % Eosinophils % (0.7-5.8) % Basophils % (0.1-1.2) % Absolute Granulocytes (1.56-6.13) x10^3/uL Basophils # (0.01-0.08) x10^3/uL D-Dimer 0.39 (0.0-0.50) mg/L Sodium (135-145) mmol/L Potassium (3.5-5.1) mmol/L Chloride (98-107) mmol/L Carbon Dioxide (22-30) mmol/L Anion Gap (5-15) MEQ/L BUN (7-17) mg/dL Creatinine (0.52-1.04) mg/dL Estimated GFR ML/MIN Glucose (74-106) mg/dL Calcium (8.4-10.2) mg/dL Magnesium (1.6-2.3) mg/dL Total Bilirubin (0.2-1.3) mg/dL AST (14-36) U/L ALT (0-35) U/L Alkaline Phosphatase (38-126) U/L NT-Pro-B Natriuret Pep (<300) pg/mL Serum Total Protein (6.3-8.2) g/dL Albumin (3.5-5.0) g/dL Urine Color Dark Yellow A (Yellow) Urine Appearance Cloudy A (Clear) Urine pH 5.0 (4.6-8.0) Ur Specific [place] >=1.030 A (1.005-1.030) Urine Protein 30 (Negative) Urine Glucose (UA) Negative (Negative) mg/dL Urine Ketones Trace A (Negative) Urine Blood Negative (Negative) Urine Nitrite Negative (Negative) Urine Bilirubin Negative (Negative) Urine Urobilinogen 1.0 A (0.2) mg/dL Ur Leukocyte Esterase Moderate A (Negative) U Hyaline Cast (Auto) 6-10 A (0-2) /LPF Urine Microscopic RBC 0-2 (0-5) /HPF Urine Microscopic WBC >100 A (0-5) /HPF Ur Epithelial Cells Moderate A (None Seen) /HPF Urine Bacteria Many A (None Seen) /HPF Urine Culture Reflexed YES (NO) Monoscreen (NEGATIVE) Influenza Type A Ag NEGATIVE (NEGATIVE) Influenza Type B Ag NEGATIVE (NEGATIVE) RSV (PCR) NEGATIVE (NEGATIVE) SARS-CoV-2 (PCR) NEGATIVE (NEGATIVE) 05/20/24 05/20/24 Range/Units 04:32 04:32 WBC 5.4 (3.98-10.04) x10^3/uL RBC 4.30 (3.93-5.22) x10^6/uL Hgb 13.5 (11.2-15.7) g/dL Hct 40.4 (34.1-44.9) % MCV 94.0 (79.4-94.8) fL MCH 31.4 (25.6-32.2) pg MCHC 33.4 (32.2-35.5) g/dL RDW 12.3 (11.7-14.4) % Plt Count 335 (182-369) x10^3/uL MPV 9.6 (9.4-12.3) fL Gran % 92.2 H (34.0-71.1) % Immature Gran % (Auto) 0.4 (0.001-0.429) % Nucleat RBC Rel Count 0.0 (0.00-0.2) % Eos # (Auto) 0.09 (0.04-0.36) x10^3/uL Immature Gran # (Auto) 0.02 (0.001-0.031) x10^3u/L Absolute Lymphs (auto) 0.26 L (1.18-3.74) x10^3/uL Absolute Monos (auto) 0.04 L (0.24-0.86) x10^3/uL Absolute Nucleated RBC 0.00 (0.00-0.012) x10^3u/L Lymphocytes % 4.8 L (19.3-51.7) % Monocytes % 0.7 L (4.7-12.5) % Eosinophils % 1.7 (0.7-5.8) % Basophils % 0.2 (0.1-1.2) % Absolute Granulocytes 4.99 (1.56-6.13) x10^3/uL Basophils # 0.01 (0.01-0.08) x10^3/uL D-Dimer (0.0-0.50) mg/L Sodium 136 (135-145) mmol/L Potassium 4.2 D (3.5-5.1) mmol/L Chloride 109 H (98-107) mmol/L Carbon Dioxide 17 L (22-30) mmol/L Anion Gap 13.5 (5-15) MEQ/L BUN 9 (7-17) mg/dL Creatinine 0.64 (0.52-1.04) mg/dL Estimated GFR 118.1 ML/MIN Glucose 212 H (74-106) mg/dL Calcium 9.0 (8.4-10.2) mg/dL Magnesium 1.8 (1.6-2.3) mg/dL Total Bilirubin 0.20 (0.2-1.3) mg/dL AST 45 H (14-36) U/L ALT 57 H (0-35) U/L Alkaline Phosphatase 70 (38-126) U/L NT-Pro-B Natriuret Pep 50.0 (<300) pg/mL Serum Total Protein 6.6 (6.3-8.2) g/dL Albumin 3.7 (3.5-5.0) g/dL Urine Color (Yellow) Urine Appearance (Clear) Urine pH (4.6-8.0) Ur Specific [place] (1.005-1.030) Urine Protein (Negative) Urine Glucose (UA) (Negative) mg/dL Urine Ketones (Negative) Urine Blood (Negative) Urine Nitrite (Negative) Urine Bilirubin (Negative) Urine Urobilinogen (0.2) mg/dL Ur Leukocyte Esterase (Negative) U Hyaline Cast (Auto) (0-2) /LPF Urine Microscopic RBC (0-5) /HPF Urine Microscopic WBC (0-5) /HPF Ur Epithelial Cells (None Seen) /HPF Urine Bacteria (None Seen) /HPF Urine Culture Reflexed (NO) Monoscreen (NEGATIVE) Influenza Type A Ag (NEGATIVE) Influenza Type B Ag (NEGATIVE) RSV (PCR) (NEGATIVE) SARS-CoV-2 (PCR) (NEGATIVE) Radiology Exams: Radiology Procedures Category Date Time Status CHEST 1 VIEW (PORTABLE) Stat Exams 05/19/24 20:51 Completed Assessment/Plan (1) Upper respiratory infection Current Visit: Yes Status: Acute Assessment & Plan: - CXR negative - Asthma/Bronchitis hx - Azithromycin, ceftriaxone, steroids, duonebs - 2lNC 96%- baseline RA - RT eval and treat - CBC, CMP reviewed - BCx2 and sputum culture pending - tessalon for cough Code(s): J06.9 - ACUTE UPPER RESPIRATORY INFECTION, UNSPECIFIED (2) Hypoxia Current Visit: Yes Status: Acute Assessment & Plan: - see above plan Code(s): R09.02 - HYPOXEMIA (3) Mononucleosis Current Visit: Yes Status: Acute Assessment & Plan: - + test in ER - supportive care Code(s): B27.90 - INFECTIOUS MONONUCLEOSIS, UNSPECIFIED WITHOUT COMPLICATION (4) UTI (urinary tract infection) Current Visit: Yes Status: Acute Qualifiers: Urinary tract infection type: acute cystitis Hematuria presence: without hematuria Qualified Code(s): N30.00 - Acute cystitis without hematuria Assessment & Plan: - UC pending - ceftriaxone IV - UA reviewed Code(s): N39.0 - URINARY TRACT INFECTION, SITE NOT SPECIFIED (5) Hypokalemia Current Visit: Yes Status: Resolved Assessment & Plan: - resolved 05/20/24 VTE: Lovenox Next of KIN: none D/C plan: tomorrow Code status: Full Code(s): E87.6 - HYPOKALEMIA
[2024-05-20] MEDS: Tessalon Perles 100 MG PO PRN (08:42)
[2024-05-20] MEDS: TYLENOL 325 MG PO PRN (08:42)
[2024-05-20] MEDS ORDERED: [UNRECOGNIZED DRUG - OTHER] PO SCH (10:00)
[2024-05-20] MEDS ORDERED: DEXTROAMPHETAMINE PO SCH (10:00)
[2024-05-20] MEDS ORDERED: AMPHETAMINE PO SCH (10:00)
[2024-05-20] MEDS: Zithromax 500 MG/ 250 ML NaCl Premix 500 MG/250 ML IVPB IV SCH (10:49)
[2024-05-20] MEDS: SODIUM BICARBONATE PO SCH (10:49)
[2024-05-20] MEDS: ENOXAPARIN SODIUM SQ SCH (10:51)
[2024-05-20] MEDS: ROCEPHIN 1 GM / 100 ML NaCl 1 GM/100 ML IVPB IV SCH (21:30)
[2024-05-21 04:27] LABS: Hematocrit 35.1 % (34.1-44.9); Hemoglobin 11.8 g/dL (11.2-15.7); Mean Cell Volume 93.1 fL (79.4-94.8); Mean Corpuscular Hemoglobin 31.3 pg (25.6-32.2); Mean Corpuscular Hgb Concent. 33.6 g/dL (32.2-35.5); Mean Platelet Volume 9.5 fL (9.4-12.3); Platelet Count 350 x10^3/uL (182-369); Red Blood Count 3.77 x10^6/uL (3.93-5.22); Red Cell Distribution Width 12.6 % (11.7-14.4); White Blood Count 17.1 x10^3/uL (3.98-10.04)
[2024-05-21 04:44] LABS: ALBUMIN 3.2 g/dL (3.5-5.0); ALKALINE PHOSPHATASE 64 U/L (38-126); ANION GAP 10.3 MEQ/L (5-15); BILIRUBIN,TOTAL < 0.10 mg/dL (0.2-1.3); BLOOD UREA NITROGEN 10 mg/dL (7-17); CHLORIDE 109 mmol/L (98-107); Calcium 8.9 mg/dL (8.4-10.2); Carbon Dioxide 20 mmol/L (22-30); Creatinine 1 0.56 mg/dL (0.52-1.04); Glucose 133 mg/dL (74-106); Potassium 3.9 mmol/L (3.5-5.1); SGOT/AST 61 U/L (14-36); SGPT/ALT 110 U/L (0-35); SODIUM 136 mmol/L (135-145); Total Protein 5.8 g/dL (6.3-8.2)
--- NOTE | 2024-05-21 08:57 | PCM.NOTE ---
Date and Time: 05/21/24 0848 Subjective Assessment: 05/20/24 Ms. MEJIA is a 34 year old female with a past medical history significant for asthma and migraines who recently went to her PCP with complaints of shortness of breath. She underwent tests for flu and strep, which came back negative, and was sent home, but returns with increasing shortness of breath associated with hypoxia as O2 sat was 83% with some confusion. She received duonebs and steroids with some improvement, but attempts to ambulate led to further O2 drop. No fever/chills. No chest pain or palpitations. No nausea, vomiting or diarrhea. No dysuria, hematuria or urgency. Initial labs were notable for a elevated WBC count of 11.0k and she was positive for mono. Today she continues to have SOB and on 2lNC at 96% with wheezing throughout. CO2 17 and oral bicarb started. Will continue antibiotics, duonebs, and steroids for asthma/ bronchitis. Cultures pending. She denies CP, Abd. pain, N/V/D. 05/21/24 Pt resting in bed. She states she is exhausted and has been sleeping a lot while here. She states she feels like she has the flu today. Explained Flu/COVID/RSV is negative on admission but MONO was + and discussed sxs of mono and that this includes increased tiredness. Lungs sounds are worse today. WBC elevate at 17.1. Repeat CXR ordered. Continue IV antibiotics, steroids, and duonebs. She is now not requiring oxygen and she is RA 95%. - Review of Systems Constitutional: Fatigue, Lethargy, No Fever, No Chills Eyes: No Symptoms Ears, Nose, & Throat: No Symptoms Respiratory: Cough, Short Of Breath, Wheezing Cardiac: No Chest Pain, No Edema, No Syncope Abdominal/Gastrointestinal: No Abdominal Pain, No Nausea, No Vomiting, No Diarrhea Genitourinary Symptoms: No Dysuria Musculoskeletal: No Back Pain, No Neck Pain Skin: No Rash Neurological: No Dizziness, No Focal Weakness, No Sensory Changes Psychological: No Symptoms Endocrine: No Symptoms Hematologic/Lymphatic: No Symptoms Immunological/Allergic: No Symptoms Objective Exam General Appearance: no apparent distress, alert Neurologic Exam: alert, oriented x 3, cooperative, normal mood/affect, nml cerebellar function, sensation nml, No motor deficits Skin Exam: normal color, warm, dry Eye Exam: PERRL, EOMI, eyes nml inspection Ears, Nose, Throat Exam: normal ENT inspection, pharynx normal, moist mucous membranes Neck Exam: normal inspection, non-tender, supple, full range of motion Respiratory Exam: rhonchi, wheezing, No respiratory distress Cardiovascular Exam: regular rate/rhythm, normal heart sounds Gastrointestinal/Abdomen Exam: soft, No tenderness, No mass Extremity Exam: normal inspection, normal range of motion Back Exam: normal inspection, normal range of motion, No CVA tenderness, No vertebral tenderness Pelvic Exam: deferred Rectal Exam: deferred Objective Data Vital Signs: Vital Signs - 24 hr Temp Pulse Resp BP Pulse Ox 05/21/24 07:36 97.5 F 120 H 18 117/64 97 05/21/24 07:10 106 H 14 95 05/21/24 04:00 98.0 F 98 H 16 102/57 96 05/21/24 01:00 107 H 18 95 05/21/24 00:00 97.8 F 99 H 20 107/59 97 05/20/24 20:00 98.0 F 120 H 18 134/74 98 05/20/24 19:10 110 H 20 95 05/20/24 15:43 97.8 F 125 H 16 129/71 92 L 05/20/24 13:28 115 H 20 97 05/20/24 11:16 97.6 F 106 H 16 107/56 95 Pain Assessment - Last Documented Pain Intensity 0 Pain Scale Used 0-10 Pain Scale Intake and Output: Intake & Output 05/18/24 05/19/24 05/20/24 05/21/24 11:59 11:59 11:59 11:59 Intake Total 580 980 Balance 580 980 Weight 67.7 kg Lab Results: Lab Results-Last 24 Hours 05/21/24 05/21/24 Range/Units 04:22 04:22 WBC 17.1 H (3.98-10.04) x10^3/uL RBC 3.77 L (3.93-5.22) x10^6/uL Hgb 11.8 (11.2-15.7) g/dL Hct 35.1 (34.1-44.9) % MCV 93.1 (79.4-94.8) fL MCH 31.3 (25.6-32.2) pg MCHC 33.6 (32.2-35.5) g/dL RDW 12.6 (11.7-14.4) % Plt Count 350 (182-369) x10^3/uL MPV 9.5 (9.4-12.3) fL Sodium 136 (135-145) mmol/L Potassium 3.9 (3.5-5.1) mmol/L Chloride 109 H (98-107) mmol/L Carbon Dioxide 20 L (22-30) mmol/L Anion Gap 10.3 (5-15) MEQ/L BUN 10 (7-17) mg/dL Creatinine 0.56 (0.52-1.04) mg/dL Estimated GFR 122.0 ML/MIN Glucose 133 H (74-106) mg/dL Calcium 8.9 (8.4-10.2) mg/dL Total Bilirubin < 0.10 L (0.2-1.3) mg/dL AST 61 H (14-36) U/L ALT 110 H (0-35) U/L Alkaline Phosphatase 64 (38-126) U/L Serum Total Protein 5.8 L (6.3-8.2) g/dL Albumin 3.2 L (3.5-5.0) g/dL Radiology Exams: Radiology Procedures Category Date Time Status CHEST 1 VIEW (PORTABLE) Stat Exams 05/19/24 20:51 Completed CHEST 2 VIEWS (PA AND LAT) Routine Exams 05/21/24 08:39 Ordered Assessment/Plan (1) Upper respiratory infection Current Visit: Yes Status: Acute Code(s): J06.9 - ACUTE UPPER RESPIRATORY INFECTION, UNSPECIFIED (2) Hypoxia Current Visit: Yes Status: Acute Code(s): R09.02 - HYPOXEMIA (3) Mononucleosis Current Visit: Yes Status: Acute Code(s): B27.90 - INFECTIOUS MONONUCLEOSIS, UNSPECIFIED WITHOUT COMPLICATION (4) UTI (urinary tract infection) Current Visit: Yes Status: Acute Qualifiers: Urinary tract infection type: acute cystitis Hematuria presence: without hematuria Qualified Code(s): N30.00 - Acute cystitis without hematuria Code(s): N39.0 - URINARY TRACT INFECTION, SITE NOT SPECIFIED (5) Hypokalemia Current Visit: Yes Status: Resolved Assessment & Plan: (1) Upper respiratory infection Current Visit: Yes Status: Acute Assessment & Plan: - CXR negative - Asthma/Bronchitis hx - Azithromycin, ceftriaxone, steroids, duonebs - 2lNC 96%- baseline RA - RT eval and treat - CBC, CMP reviewed - BCx2 and sputum culture pending - tessalon for cough 05/21 - worsening lung sounds - repeat CXR - RA 96% even after walking - CBC, CMP reviewed - Sputum culture pending - BC x2 negative Code(s): J06.9 - ACUTE UPPER RESPIRATORY INFECTION, UNSPECIFIED (2) Hypoxia Current Visit: Yes Status: Acute Assessment & Plan: - see above plan Code(s): R09.02 - HYPOXEMIA (3) Mononucleosis Current Visit: Yes Status: Acute Assessment & Plan: - + test in ER - supportive care Code(s): B27.90 - INFECTIOUS MONONUCLEOSIS, UNSPECIFIED WITHOUT COMPLICATION (4) UTI (urinary tract infection) Current Visit: Yes Status: Acute Qualifiers: Urinary tract infection type: acute cystitis Hematuria presence: without hematuria Qualified Code(s): N30.00 - Acute cystitis without hematuria Assessment & Plan: - UC pending - ceftriaxone IV - UA reviewed 05/21 - UC negative Code(s): N39.0 - URINARY TRACT INFECTION, SITE NOT SPECIFIED (5) Hypokalemia Current Visit: Yes Status: Resolved Assessment & Plan: - resolved 05/20/24 Code(s): E87.6 - HYPOKALEMIA Code(s): E87.6 - HYPOKALEMIA (6) Transaminitis Current Visit: Yes Status: Acute Assessment & Plan: - AST 61, ALT 110- likely 2:2 infection- trend labs VTE: Lovenox Next of KIN: none D/C plan: tomorrow Code status: Full Code(s): R74.01 - ELEVATION OF LEVELS OF LIVER TRANSAMINASE LEVELS
--- NOTE | 2024-05-21 09:36 | XRAY ---
CLINICAL HISTORY: increased SOB and wheezing COMPARISON: 05/19/2024 TECHNIQUE: X-ray of the chest was performed in PA and lateral 2 views. FINDINGS: A radiographic examination of the chest demonstrates clear lungs. Normal configuration of the mediastinum. The chinmay are normal in size and position. The cardiac size is normal. Costophrenic and cardiophrenic angles are clear. Retrocardiac and retrosternal spaces are normal. The bony thorax is unremarkable. IMPRESSION: 1. No active pulmonary pathology was detected. 2. No definite interval changes. Electronically Signed by: Kimberly Harvey MD. (05/21/2024 09:31:38 EST)
[2024-05-21] MEDS: DUONEB 0.5-3 MG/3 ml Neb IH PRN (11:44)
[2024-05-21] MEDS: Advair Hfa 115/21 Common canister IH SCH (11:48)
[2024-05-22] MEDS ORDERED: HYDROCODONE-ACETAMIN 2.5-108/5 ML SOLUTION ONE ×2 (00:52→05:36)
[2024-05-22 05:01] LABS: Hematocrit 32.6 % (34.1-44.9); Hemoglobin 10.9 g/dL (11.2-15.7); Mean Cell Volume 93.9 fL (79.4-94.8); Mean Corpuscular Hemoglobin 31.4 pg (25.6-32.2); Mean Corpuscular Hgb Concent. 33.4 g/dL (32.2-35.5); Mean Platelet Volume 9.6 fL (9.4-12.3); Platelet Count 349 x10^3/uL (182-369); Red Blood Count 3.47 x10^6/uL (3.93-5.22); Red Cell Distribution Width 12.9 % (11.7-14.4); White Blood Count 14.5 x10^3/uL (3.98-10.04)
[2024-05-22 05:18] LABS: ALKALINE PHOSPHATASE 54 U/L (38-126); ANION GAP 9.6 MEQ/L (5-15); BILIRUBIN,TOTAL < 0.10 mg/dL (0.2-1.3); BLOOD UREA NITROGEN 15 mg/dL (7-17); CHLORIDE 107 mmol/L (98-107); Calcium 8.9 mg/dL (8.4-10.2); Carbon Dioxide 24 mmol/L (22-30); Creatinine 1 0.58 mg/dL (0.52-1.04); Glucose 162 mg/dL (74-106); Potassium 3.9 mmol/L (3.5-5.1); SGOT/AST 30 U/L (14-36); SGPT/ALT 73 U/L (0-35); SODIUM 136 mmol/L (135-145); Total Protein 5.5 g/dL (6.3-8.2)
[2024-05-22 07:40] VITALS: RESP 16
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
[2024-05-22 14:27] VITALS: BP 118/64; PULSE 107; TEMP 97.5; O2SAT 93
== END 2024-05-22 14:35 | disposition home or self-care (01) ==
LOC: ED 19:13 → MED SURG 23:49
PROVIDERS: ADMIT Internal Medicine Nephrology; ATTEND Internal Medicine Nephrology
DX: J06.9 Acute upper respiratory infection, unspecified (principal); R09.02 Hypoxemia; B27.90 Infectious mononucleosis, unspecified without complication; N39.0 Urinary tract infection, site not specified; E87.6 Hypokalemia; R74.01 Elevation of levels of liver transaminase levels; Z79.899 Other long term (current) drug therapy
CPT/HCPCS: 0241U; 36415; 41899; 71045; 71046; 80053; 81001; 83735; 83880; 85025; 85027; 85379; 86308; 87040; 87086; 93041; 94640; 94760; 96374; 99284; Q3014; G0378; J0456; J0696; J1650; J2919; A9270-GY